=== PATIENT | male | born 1960 | race Caucasian/White ===

== ENCOUNTER 2021-03-01 15:59 | Observation (INO) | payer OTHER ==
[~2021-03-01] VITALS: Ht 170.2 cm; Wt 72.4 kg
[2021-03-01 16:32] LABS: BASOPHILS ABSOLUTE AUTO 0.05 K/mm3 (0.00-0.23); BASOPHILS PERCENT AUTO 1 % (0-2); EOSINOPHILS ABSOLUTE AUTO 0.98 K/mm3 (0.00-0.68); EOSINOPHILS PERCENT AUTO 11 % (0-6); IMMATURE GRAN ABSOLUTE AUTO 0.02 K/mm3 (0.00-0.10); IMMATURE GRAN PERCENT AUTO 0 % (0-1); LYMPHOCYTES ABSOLUTE AUTO 3.87 K/mm3 (0.84-5.20); LYMPHOCYTES PERCENT AUTO 44 % (21-46); MONOCYTES PERCENT AUTO 6 % (4-13); Mean Corpuscular HGB 30.4 pg (26.0-34.0); Mean Corpuscular HGB Conc 34.2 g/dL (31.5-36.5); Mean Corpuscular Volume 89 fL (80-100); Mean Platelet Volume 10.1 fL (9.1-12.4); NEUTROPHILS ABSOLUTE AUTO 3.32 K/mm3 (1.96-9.15); NEUTROPHILS PERCENT AUTO 38 % (41-73); Platelet Count 286 K/mm3 (150-400); RDW Coefficient Variation 12.4 % (11.7-14.2); RDW Standard Deviation 40.1 fL (35.1-46.3); Red Blood Cell Count 4.27 M/mm3 (4.30-5.90); White Blood Cell Count 8.74 K/mm3 (4.00-11.30)
[2021-03-01 16:43] LABS: Alanine Aminotransfer (ALT/SGP 40 U/L (12-78); Albumin, Blood 3.3 g/dL (3.4-5.0); Albumin/Globulin Ratio 0.9 (0.8-1.8); Alk Phos 69 U/L (50-136); Anion Gap 4 mmol/L (6-16); Aspartate Aminotrans (AST/SGOT 33 U/L (12-37); Bilirubin, Total 0.3 mg/dL (0.1-1.0); Blood Urea Nitrogen 13 mg/dL (8-24); Bun/Creatinine Ratio 16.8 (12.0-20.0); CO2, Blood 26 mmol/L (21-32); Calcium, Blood 8.2 mg/dL (8.5-10.1); Chloride, Blood 110 mmol/L (98-108); Creatinine, Blood 0.78 mg/dL (0.60-1.20); Globulin, Blood 3.5 g/dL (2.2-4.0); Glomerular Filtration Rate >60 (60-); Glucose, Blood 117 mg/dL (70-99); Potassium, Blood 3.8 mmol/L (3.5-5.5); Sodium, Blood 140 mmol/L (136-145); Total Protein, Blood 6.8 g/dL (6.4-8.2)
[2021-03-01 17:25] LABS: International Normalized Ratio 1.11; Prothrombin Time Results 11.6 Sec (9.7-11.5)
[2021-03-01] MEDS ORDERED: MS Contin15 MG PO (19:00)
--- NOTE | 2021-03-02 04:33 | NUR ---
SHIFT SUMMARY CHAD: CHAD REMAINED PLEASNT COOPERATIVE, VITALS WERE STABLE. HE WENT DAVIDA IN THE UPPER 40'S IN HIS SLEEP PER TELE REPORT. HE RECEIVED HIS MORPHINE FOR HIS CHRONIC NECK PAIN BEFORE GOING TO BED. WILL CONTINUE TO MONITOR.
[2021-03-02 05:29] LABS: Hematocrit 38.8 % (37.0-53.0); Mean Corpuscular HGB 29.9 pg (26.0-34.0); Mean Corpuscular HGB Conc 33.5 g/dL (31.5-36.5); Mean Corpuscular Volume 89 fL (80-100); Mean Platelet Volume 10.1 fL (9.1-12.4); Platelet Count 285 K/mm3 (150-400); RDW Coefficient Variation 12.4 % (11.7-14.2); RDW Standard Deviation 40.5 fL (35.1-46.3); Red Blood Cell Count 4.35 M/mm3 (4.30-5.90); White Blood Cell Count 6.87 K/mm3 (4.00-11.30)
[2021-03-02 06:16] LABS: Anion Gap 6 mmol/L (6-16); Blood Urea Nitrogen 13 mg/dL (8-24); Bun/Creatinine Ratio 16.2 (12.0-20.0); CHOL/HDL RATIO 4.7; CO2, Blood 26 mmol/L (21-32); Calcium, Blood 8.7 mg/dL (8.5-10.1); Chloride, Blood 110 mmol/L (98-108); Cholesterol 200 mg/dL (50-200); Glomerular Filtration Rate >60 (60-); Glucose, Blood 92 mg/dL (70-99); HDL Cholesterol 43 mg/dL (>39); LDL/HDL RATIO 3.3; Low Density Lipoprotein Chol 142 mg/dL (0-110); Sodium, Blood 142 mmol/L (136-145); Triglycerides 73 mg/dL (30-160); Very Low Density Lipoprot Chol 14 mg/dL (6-32)
[2021-03-02] MEDS ORDERED: ASPI81CH PO (11:36)
[2021-03-02] MEDS ORDERED: ACET325 PO (11:36)
[2021-03-02] MEDS ORDERED: CLOP75 PO (11:38)
[2021-03-02] MEDS ORDERED: ATOR40TA PO (11:38)
--- NOTE | 2021-03-02 12:19 | NUR ---
PT DISCHARGED THE PT VERBALIZED UNDERSTANDING OF THE DC INSTRUCTIONS. THE PT HAD ALREADY ESTABLISHED AN APPOINTMENT WITH HIS PCP PRIOR TO DC. THE PT DENIED ANY PHYSICAL STROKE SYMPTOMS AT THE TIME OF DC. THE PT S PRESCTIPTIONS WERE FAXED TO [facility] REQUEST[facility]. THE PT WAS TRANSFERED VIA WHEELCHAIR ACCOMPANIED BY THE TOLL SETTLEMENT CLERK AND HIS FAMILY TO THE FRONT ENTRANCE
== END 2021-03-02 12:06 | disposition home or self-care (01) ==
LOC: ER 15:59 → MEDS 20:44 → ER 20:44 → MEDS 20:44
PROVIDERS: Emergency Medicine; ADMIT Internal Medicine
DX: G45.9 Transient cerebral ischemic attack, unspecified (principal); I73.9 Peripheral vascular disease, unspecified; J45.909 Unspecified asthma, uncomplicated; G89.29 Other chronic pain; M54.2 Cervicalgia; M54.9 Dorsalgia, unspecified; E78.5 Hyperlipidemia, unspecified; F17.220 Nicotine dependence, chewing tobacco, uncomplicated; Z88.2 Allergy status to sulfonamides
CPT/HCPCS: 36415; 70450; 70496; 70498; 71045; 80048; 80053; 80061; 82947; 83036; 85025; 85027; 85610; 85730; 93005; 93010; 93306; 96372; 97110; 97161; 99285-25; A9270; G0378; J1650; Q9967